=== PATIENT | female | born 1985 | race Caucasian/White ===

== ENCOUNTER → 2016-08-21 | Outpatient (CLI) | payer OTHER ==
[2016-08-21 17:28] LABS: HEMOGLOBIN 13.7 gm/dl (12.3-15.3); RED BLOOD COUNT 4.72 M/UL (4.00-5.10)
[2016-08-21 17:46] LABS: BUN/CREATININE RATIO 27 (0-10)
== END ==
LOC: LAB 16:45
PROVIDERS: Surgery
DX: R53.83 Other fatigue (principal); I10 Essential (primary) hypertension; K21.9 Gastro-esophageal reflux disease without esophagitis; E66.01 Morbid (severe) obesity due to excess calories; R12 Heartburn
CPT/HCPCS: 36415; 80053; 80061; 84443; 85027

== ENCOUNTER 2020-04-30 22:29 | Emergency (ER) | payer OTHER ==
[~2020-04-30 22:29] MED LIST: CYCLOBENZAPRINE10 MG PO; IBU800 MG PO; IBUPROFEN800 MG PO; ULTRACET TABLE1 EACH PO; [UNRECOGNIZED DRUG - REMARK]
[2020-04-30] MEDS ORDERED: ERYTHROMYCIN OP1 GM OP (22:57)
== END 2020-04-30 23:13 | disposition home or self-care (01) ==
LOC: ER1 22:29
DX: S05.02XA Injury of conjunctiva and corneal abrasion without foreign body, left eye, initial encounter (principal); W22.8XXA Striking against or struck by other objects, initial encounter; Y92.009 Unspecified place in unspecified non-institutional (private) residence as the place of occurrence of the external cause
CPT/HCPCS: 99283

== ENCOUNTER 2020-05-04 16:04 | Emergency (ER) | payer OTHER ==
[~2020-05-04 16:04] MED LIST changes: +ERYTHROMYCIN OP1 GM OP
[2020-05-04] MEDS ORDERED: IBUPROFEN600 MG PO (19:34)
[2020-05-04] MEDS ORDERED: NORFLEX 100 MG100 MG PO (19:34)
== END 2020-05-04 20:10 | disposition home or self-care (01) ==
LOC: ER1 16:04
DX: S39.012A Strain of muscle, fascia and tendon of lower back, initial encounter (principal); M51.37 Other intervertebral disc degeneration, lumbosacral region; M25.511 Pain in right shoulder; M25.512 Pain in left shoulder; Z87.39 Personal history of other diseases of the musculoskeletal system and connective tissue; Z88.0 Allergy status to penicillin; V43.52XA Car driver injured in collision with other type car in traffic accident, initial encounter; Y92.410 Unspecified street and highway as the place of occurrence of the external cause
CPT/HCPCS: 71045; 72072; 72100; 81001; 96372; 99283; J1885

== ENCOUNTER 2020-06-24 13:56 | Emergency (ER) | payer OTHER ==
[~2020-06-24 13:56] MED LIST changes: +IBUPROFEN600 MG PO; +NORFLEX 100 MG100 MG PO
[2020-06-24] MEDS ORDERED: HYDROCODON-ACE1 EAC4 PO (15:46)
== END 2020-06-24 15:55 | disposition home or self-care (01) ==
LOC: ER1 13:56
DX: S13.4XXA Sprain of ligaments of cervical spine, initial encounter (principal); Z88.0 Allergy status to penicillin; V43.52XA Car driver injured in collision with other type car in traffic accident, initial encounter; Y92.410 Unspecified street and highway as the place of occurrence of the external cause
CPT/HCPCS: 72125; 99283

== ENCOUNTER 2020-07-30 19:53 | Emergency (ER) | payer OTHER ==
[~2020-07-30 19:53] MED LIST changes: +HYDROCODON-ACE1 EAC4 PO
[2020-07-30] MEDS ORDERED: IBUPROFEN600 MG PO (23:23)
[2020-07-30] MEDS ORDERED: CYCLOBENZAPRINE5 MG PO (23:23)
== END 2020-07-30 23:34 | disposition home or self-care (01) ==
LOC: ER1 19:53
DX: M25.512 Pain in left shoulder (principal); Z88.0 Allergy status to penicillin
CPT/HCPCS: 73030; 73080; 96372; 99283; J1885

== ENCOUNTER → 2020-09-04 | Outpatient (CLI) | payer OTHER ==
[~2020-09-04] MED LIST changes: +CYCLOBENZAPRINE5 MG PO; +PREDNISONE50 MG PO
== END ==
LOC: KOH-I 10:12
DX: M25.512 Pain in left shoulder (principal); M24.9 Joint derangement, unspecified; R53.1 Weakness; S46.012A Strain of muscle(s) and tendon(s) of the rotator cuff of left shoulder, initial encounter; M85.612 Other cyst of bone, left shoulder; M19.012 Primary osteoarthritis, left shoulder
CPT/HCPCS: 73221

== ENCOUNTER 2020-09-05 14:07 | Emergency (ER) | payer OTHER ==
[~2020-09-05 14:07] MED LIST changes: -PREDNISONE50 MG PO
[2020-09-05] MEDS ORDERED: PREDNISONE50 MG PO (16:49)
== END 2020-09-05 17:34 | disposition home or self-care (01) ==
LOC: ER1 14:07
DX: G89.29 Other chronic pain (principal); M53.3 Sacrococcygeal disorders, not elsewhere classified; Z90.49 Acquired absence of other specified parts of digestive tract; Z88.0 Allergy status to penicillin; Z79.899 Other long term (current) drug therapy
CPT/HCPCS: 96372; 99283; J1100; J1885

== ENCOUNTER 2020-09-18 21:50 | Emergency (ER) | payer OTHER ==
[~2020-09-18 21:50] MED LIST changes: +PREDNISONE50 MG PO
[2020-09-19 01:19] LABS: HEMOGLOBIN 14.8 gm/dl (12.3-15.3); RED BLOOD COUNT 4.84 M/UL (4.00-5.10); WHITE BLOOD COUNT 14.3 K/UL (4.5-11.0)
[2020-09-19 01:40] LABS: BUN/CREATININE RATIO 41 (0-10)
== END 2020-09-19 07:15 | disposition home or self-care (01) ==
LOC: ER1 21:50
PROVIDERS: Physician Assistant
DX: M53.3 Sacrococcygeal disorders, not elsewhere classified (principal); N93.8 Other specified abnormal uterine and vaginal bleeding; R30.0 Dysuria; Z90.49 Acquired absence of other specified parts of digestive tract; Z88.0 Allergy status to penicillin
CPT/HCPCS: 80053; 81001; 84703; 85025; 96372; 99283; J1885

== ENCOUNTER → 2020-12-01 | Outpatient (CLI) | payer OTHER ==
[~2020-12-01] MED LIST changes: +GABAPENTIN300 MG PO; +HYDROCODONE-AC1 EACH PO
[2020-12-01 13:02] LABS: HEMOGLOBIN 14.7 gm/dl (12.3-15.3); RED BLOOD COUNT 4.71 M/UL (4.00-5.10); WHITE BLOOD COUNT 8.8 K/UL (4.5-11.0)
== END ==
LOC: OPSV2 11:24
PROVIDERS: Obstetrics & Gynecology
DX: N92.0 Excessive and frequent menstruation with regular cycle (principal)
CPT/HCPCS: 81001; 85025

== ENCOUNTER → 2020-12-05 | Day surgery (SDC) | payer OTHER | END | disposition home or self-care (01) | LOC: OR 05:15 | DX: N92.4 Excessive bleeding in the premenopausal period (principal); N94.6 Dysmenorrhea, unspecified; D21.9 Benign neoplasm of connective and other soft tissue, unspecified; Z80.0 Family history of malignant neoplasm of digestive organs; E66.01 Morbid (severe) obesity due to excess calories; Z68.42 Body mass index [BMI] 45.0-49.9, adult; Z20.822 Contact with and (suspected) exposure to COVID-19; Z88.8 Allergy status to other drugs, medicaments and biological substances | CPT/HCPCS: J1100; J1885; J2001; J2250; J2405; J2704; J2710; J3010; J7030; J7120; U0002 ==

== ENCOUNTER → 2021-07-18 | Outpatient (CLI) | payer OTHER | LOC: HEART 5 07-03 15:00 → EXRD 07-09 13:30 → HEART 5 08:00 | DX: I26.99 Other pulmonary embolism without acute cor pulmonale (principal); I08.3 Combined rheumatic disorders of mitral, aortic and tricuspid valves | CPT/HCPCS: 93306; 93970 ==